=== PATIENT | male | born 1965 | race Caucasian/White ===

== ENCOUNTER 2016-11-27 21:30 | Emergency (ER) | payer MEDICAID ==
[~2016-11-27] VITALS: Ht 180.3 cm; Wt 79.4 kg
[2016-11-27] MEDS ORDERED: RISPERDAL1 MG/1 ML PO (22:50)
[2016-11-27] MEDS ORDERED: BUSPIRONE HCL5 M2 ORAL (22:50)
[2016-11-27] MEDS ORDERED: KETOCONAZOLE15 GM TOP (22:50)
--- NOTE | 2016-11-27 22:50 | Emergency Room Report ---
History of Present Illness General Chief Complaint: Flu Like Symptoms Source: Patient, Caregiver Present Illness HPI Patient presents with round kiln drawer for complaints of general weakness and cough Patient has developmental delay Does not provide much information verbally Rubber Insulator states that the patient today was found to be not as active Patient has had a cough since and has been on when necessary cough syrup No reports of vomiting or diarrhea Questionable low-grade subjective fevers off-and-on Rubber Insulator denies any rash Denies any other change in medications Allergies: Coded Allergies: No Known Allergies (Unverified , 11/27/16) Patient History Limited by: medical condition Past Medical History: see triage record Pertinent Family History: none Reviewed Nursing Documentation: PMH: Agreed, PSxH: Agreed Nursing Documentation-PMH Past Medical History: No Stated History Review of Systems All Other Systems: limited - Other than the ones mentioned in the history of present illness all others are reviewed however they do stay limited due to the patient's mental status Physical Exam Vital Signs Date Time Temp Pulse Resp B/P Pulse Ox O2 Delivery O2 Flow Rate FiO2 11/27/16 21:36 98.1 77 15 111/60 98 Room Air Sp02 EP Interpretation: reviewed, normal General Appearance: well appearing, no apparent distress Head: normocephalic, atraumatic Eyes: bilateral eye PERRL ENT: hearing grossly normal, normal pharynx, no angioedema Neck: supple, thyroid normal Respiratory: lungs clear, normal breath sounds Cardiovascular #1: regular rate, rhythm, no edema Gastrointestinal: non tender, soft, no mass Musculoskeletal: normal inspection Neurologic: alert, responsive Skin: normal color, no rash Lymphatic: no adenopathy Medical Decision Making Diagnostic Impression: Primary Impression: Pneumonia ER Course Patient's imaging study show some questionable bilateral lower lobe atelectasis versus early infiltrate Patient's white blood cell count is very minimally elevated Sodium was also mildly low Otherwise patient continues to do well saturating well on room air does not show any signs of respiratory distress Patient is also on multiple psychotropic medications along with cough syrup The round kiln drawer does not have the cough syrup with her so therefore there could be some poly-medication consideration as well Given the x-ray patient was given initial oral antibiotics here and was placed on medications for home requires close outpatient followup Labs Test 11/27/16 22:43 White Blood Count 12.2 K/UL (4.8-10.8) Red Blood Count 4.37 M/UL (4.70-6.10) Hemoglobin 12.8 G/DL (14.2-18.0) Hematocrit 37.4 % (42.0-52.0) Mean Corpuscular Volume 86 FL (80-99) Mean Corpuscular Hemoglobin 29.3 PG (27.0-31.0) Mean Corpuscular Hemoglobin Concent 34.3 G/DL (32.0-36.0) Red Cell Distribution Width 11.5 % (11.6-14.8) Platelet Count 184 K/UL (150-450) Mean Platelet Volume 7.8 FL (6.5-10.1) Neutrophils (%) (Auto) 70.5 % (45.0-75.0) Lymphocytes (%) (Auto) 15.9 % (20.0-45.0) Monocytes (%) (Auto) 12.5 % (1.0-10.0) Eosinophils (%) (Auto) 0.6 % (0.0-3.0) Basophils (%) (Auto) 0.5 % (0.0-2.0) Sodium Level 131 mEQ/L (135-145) Potassium Level 3.8 mEQ/L (3.4-4.9) Chloride Level 93 mEQ/L (98-107) Carbon Dioxide Level 26 mEQ/L (20-30) Anion Gap 12 (5-15) Blood Urea Nitrogen 7 mg/dL (7-23) Creatinine 0.7 mg/dL (0.7-1.2) Estimat Glomerular Filtration Rate > 60 mL/min (>60) Glucose Level 102 mg/dL (74-106) Calcium Level 8.9 mg/dL (8.6-10.2) Chest X-Ray Diagnostic Results EP Interpretation: Yes Findings: no effusion, no pneumothorax, other - Bilateral lower lobe atelectasis, left lower appears more than right, infiltrate versus other Number of Views: 1 Last Vital Signs Date Time Temp Pulse Resp B/P Pulse Ox O2 Delivery O2 Flow Rate FiO2 11/27/16 22:11 77 15 Room Air 11/27/16 21:36 98.1 111/60 98 Status: improved Disposition: HOME, SELF-CARE Condition: Improved Scripts Levofloxacin* (LEVAQUIN*) 750 Mg Tablet 750 MG ORAL DAILY for 10 Days, TAB Prov: CARLOS SWARTZ D.O. 11/27/16 Referrals: NON PHYSICIAN (PCP) Additional Instructions: Patient is provided with the discharge instructions notified to follow up with primary doctor in the next 2-3 days otherwise return to the er with any worsening symptoms. CARLOS SWARTZ D.O. Nov 27, 2016 22:50
[2016-11-27 23:10] LABS: BASOPHILS % (AUTO) 0.5 % (0.0-2.0); EOSINOPHILS % (AUTO) 0.6 % (0.0-3.0); LYMPHOCYTES % (AUTO) 15.9 % (20.0-45.0); MEAN CORPUSCULAR HEMOGLOBIN 29.3 PG (27.0-31.0); MEAN CORPUSCULAR HGB CONC 34.3 G/DL (32.0-36.0); MEAN CORPUSCULAR VOLUME 86 FL (80-99); MEAN PLATELET VOLUME 7.8 FL (6.5-10.1); MONOCYTES % (AUTO) 12.5 % (1.0-10.0); NEUTROPHILS % (AUTO) 70.5 % (45.0-75.0); PLATELET COUNT 184 K/UL (150-450); RED BLOOD COUNT 4.37 M/UL (4.70-6.10); RED CELL DISTRIBUTION WIDTH 11.5 % (11.6-14.8); WHITE BLOOD COUNT 12.2 K/UL (4.8-10.8)
[2016-11-27 23:14] LABS: ANION GAP 12 (5-15); CALCIUM 8.9 mg/dL (8.6-10.2); CARBON DIOXIDE 26 mEQ/L (20-30); CHLORIDE 93 mEQ/L (98-107); CREATININE 0.7 mg/dL (0.7-1.2); GLOMERULAR FILTRATION RATE > 60 mL/min (>60); HEMOLYSIS 2; POTASSIUM 3.8 mEQ/L (3.4-4.9); SODIUM 131 mEQ/L (135-145)
[2016-11-27] MEDS ORDERED: Levofloxacin 500mg tab ORAL ONE (23:30)
[2016-11-27] MEDS ORDERED: LEVAQUIN750 MG ORAL (23:46)
[2016-11-28 00:12] VITALS: BP 125/68
[2016-11-28 00:13] VITALS: BP 125/68
--- NOTE | 2016-11-28 10:16 | Diagnostic Imaging Report ---
Indication: SOB Technique: One view of the chest Comparison: none Findings: Lungs and pleural spaces are clear. Heart size is normal Impression: No acute process
== END 2016-11-28 00:14 | disposition home or self-care (01) ==
LOC: EMR 22:19
DX: J18.9 Pneumonia, unspecified organism (principal)
CPT/HCPCS: 36415; 71010; 80048; 85025; 99283